=== PATIENT | male | born 1995 | race Hispanic/Latino ===

== ENCOUNTER 2021-04-21 11:48 | Emergency (ER) | payer SELFPAY ==
[2021-04-21] MEDS ORDERED: Ketorolac Tromethamine 30 MG/ML VIAL ONE (12:48)
== END 2021-04-21 14:10 | disposition home or self-care (01) ==
LOC: ERS 11:48
DX: M41.34 Thoracogenic scoliosis, thoracic region (principal); M62.838 Other muscle spasm
CPT/HCPCS: 71045; 72072; 96374; J1885

== ENCOUNTER 2023-05-14 17:09 | Emergency (ER) | payer SELFPAY ==
[2023-05-14] MEDS ORDERED: Ondansetron ODT 4 MG TAB ONE (17:53)
== END 2023-05-14 18:59 | disposition home or self-care (01) ==
LOC: ERS 17:09
DX: R11.2 Nausea with vomiting, unspecified (principal)
CPT/HCPCS: 99283; Q0162